=== PATIENT | female | born 1995 | race Caucasian/White ===

== ENCOUNTER 2018-03-23 22:29 | Inpatient (IN) | payer OTHER ==
[2018-03-23] MEDS ORDERED: LACTATED RINGER'S 1,000 ML IV (22:39)
[2018-03-23] MEDS ORDERED: MISOPROSTOL 200 MCG TAB PR (23:00)
[2018-03-23] MEDS ORDERED: METHYLERGONOVINE 0.2 MG INJ IM (23:00)
[2018-03-23] MEDS ORDERED: OXYTOCIN 30 UNITS/LR 500 ML IV (23:00)
[2018-03-23] MEDS ORDERED: CARBOPROST 250 MCG INJ IM (23:00)
[2018-03-23] MEDS ORDERED: LIDOCAINE 1% (MPF) 30 ML INJ INJ (23:00)
[2018-03-23] MEDS: LACTATED RINGER'S 1,000 ML IV (23:17)
[2018-03-23 23:26] LABS: ADD MAN DIFF? NO
[2018-03-23 23:31] LABS: BASOPHILS % 0.1 % (0.0-2.0); EOSINOPHILS # 0.1 10^3/ul (0.0-0.5); EOSINOPHILS % 1.2 % (0.0-7.0); HEMATOCRIT 36.7 % (37.0-47.0); HEMOGLOBIN 12.2 g/dl (12.0-16.0); LYMPHOCYTES # 2.1 10^3/ul (0.8-2.9); LYMPHOCYTES % 28.5 % (15.0-51.0); MEAN CORPUSCULAR HEMOGLOBIN 29.2 pg (29.0-33.0); MEAN CORPUSCULAR HGB CONC 33.2 g/dl (32.0-37.0); MEAN CORPUSCULAR VOLUME 87.8 fl (82.0-101.0); MEAN PLATELET VOLUME 11.4 fl (7.4-10.4); MONOCYTE # 0.7 10^3/ul (0.3-0.9); MONOCYTES % 9.3 % (0.0-11.0); NEUTROPHIL # 4.5 10^3/ul (1.6-7.5); NEUTROPHILS % 60.8 % (39.0-77.0); PLATELET COUNT 203 10^3/UL (140-415); RED BLOOD COUNT 4.18 10^6/ul (4.20-5.40); RED CELL DISTRIBUTION WIDTH 14.2 % (11.5-14.5)
[2018-03-23 23:31] LABS: WHITE BLOOD COUNT 7.3 10^3/ul (4.8-10.8)
[2018-03-24] MEDS: MISOPROSTOL 25 MCG CAPSULE PO ×6 (00:18→21:00)
[2018-03-24 00:37] LABS: HEPATITIS B SURFACE ANTIGEN NEGATIVE (NEGATIVE)
[2018-03-24 01:21] LABS: INR 0.87; PARTIAL THROMBOPLASTIN TIME 24.4 Sec (25.0-35.0); PROTIME 11.9 Sec (11.9-14.9); PT RATIO 0.9
[2018-03-24] MEDS: LACTATED RINGER'S 1,000 ML IV ×2 (06:53→15:02)
[2018-03-24] MEDS: ACYCLOVIR 400 MG TAB PO ×2 (12:19→21:00)
[2018-03-24] MEDS: BUTORPHANOL 2 MG INJ IV ×2 (12:20→20:38)
[2018-03-24] MEDS: ACETAMINOPHEN 500 MG TAB PO (17:19)
[2018-03-24] MEDS: OXYTOCIN 30 UNITS/LR 500 ML IV ×3 (17:49→21:38)
[2018-03-24 18:51] LABS: RAPID PLASMA REAGIN NONREACTIVE (NR)
[2018-03-24] MEDS: IBUPROFEN 600 MG TAB PO (22:20)
[2018-03-25] MEDS ORDERED: OXYTOCIN 30 UNITS/LR 500 ML IV
[2018-03-25] MEDS ORDERED: CARBOPROST 250 MCG INJ IM
[2018-03-25] MEDS ORDERED: MISOPROSTOL 200 MCG TAB PR
[2018-03-25] MEDS ORDERED: DIPHENHYDRAMINE 25 MG CAP PO
[2018-03-25] MEDS ORDERED: METHYLERGONOVINE 0.2 MG INJ IM
[2018-03-25] MEDS ORDERED: OXYCODONE/ASPIRIN (4.88/325) TAB PO
[2018-03-25] MEDS ORDERED: NACL 0.9% 3 ML SYG IV
[2018-03-25] MEDS ORDERED: ZOLPIDEM 5 MG TAB PO
[2018-03-25] MEDS: OXYTOCIN 30 UNITS/LR 500 ML IV (02:20)
[2018-03-25] MEDS: IBUPROFEN 600 MG TAB PO ×5 (05:34→23:35)
[2018-03-25] MEDS: BENZOCAINE 20% 56 ML SPRAY TOP (05:35)
[2018-03-25] MEDS: WITCH HAZEL/GLYCERIN PAD PR (05:35)
[2018-03-25 08:59] LABS: ADD MAN DIFF? NO
[2018-03-25 09:07] LABS: BASOPHILS % 0.2 % (0.0-2.0); EOSINOPHILS # 0.1 10^3/ul (0.0-0.5); EOSINOPHILS % 0.4 % (0.0-7.0); HEMATOCRIT 33.9 % (37.0-47.0); HEMOGLOBIN 11.2 g/dl (12.0-16.0); LYMPHOCYTES # 1.9 10^3/ul (0.8-2.9); LYMPHOCYTES % 15.1 % (15.0-51.0); MEAN CORPUSCULAR HEMOGLOBIN 29.3 pg (29.0-33.0); MEAN CORPUSCULAR VOLUME 88.7 fl (82.0-101.0); MONOCYTE # 0.8 10^3/ul (0.3-0.9); MONOCYTES % 6.6 % (0.0-11.0); NEUTROPHIL # 9.7 10^3/ul (1.6-7.5); NEUTROPHILS % 77.4 % (39.0-77.0); PLATELET COUNT 157 10^3/UL (140-415); RED BLOOD COUNT 3.82 10^6/ul (4.20-5.40); RED CELL DISTRIBUTION WIDTH 14.4 % (11.5-14.5)
[2018-03-25 09:07] LABS: WHITE BLOOD COUNT 12.5 10^3/ul (4.8-10.8)
[2018-03-26] MEDS: IBUPROFEN 600 MG TAB PO ×2 (05:33→12:36)
[2018-03-26] MEDS: DIPHTH/TET/ACEL PERTUSS (ADULT) 0.5 ML VIAL IM* (09:00)
== END 2018-03-26 14:53 | disposition home or self-care (01) | DRG 775 ==
LOC: PP1 03-24 23:09 → L-D 22:29
PROVIDERS: Specialist
PROC: 10E0XZZ Delivery of Products of Conception, External Approach (ICD-10-PCS; principal; 2018-03-24)
PROC: 0HQ9XZZ Repair Perineum Skin, External Approach (ICD-10-PCS; 2018-03-24)
DX: O70.9 Perineal laceration during delivery, unspecified (principal); O69.81X0 Labor and delivery complicated by cord around neck, without compression, not applicable or unspecified; Z3A.40 40 weeks gestation of pregnancy; Z37.0 Single live birth
CPT/HCPCS: 76815; 85025; 85610; 85730; 86592; 86850; 86870; 86900; 86901; 87340